=== PATIENT | male | born 1970 | race Caucasian/White ===

== ENCOUNTER 2024-09-01 13:51 | Emergency (ER) | payer OTHER, SELFPAY ==
[2024-09-01 13:58] VITALS: BP 136/75
[2024-09-01 14:30] LABS: % Basophils 0.9 % (0-2); % Eosinophils 8.7 % (0-6); % Immature Granulocytes 0.1 % (0-0.5); % Lymphocytes 30.1 % (20.5-51.1); % Monocytes 9.4 % (1.7-9.3); % Neutrophils 50.8 % (42.2-75.2); Absolute Basophils 0.1 10^3/uL (0-0.2); Absolute Eosinophils 0.6 10^3/uL (0-0.7); Absolute Lymphocytes 2.1 10^3/uL (1.2-3.4); Absolute Monocytes 0.7 10^3/uL (0.1-0.6); Absolute Neutrophils 3.6 10^3/uL (1.4-6.5); Hematocrit 46.3 % (39.0-52.0); Hemoglobin 16.1 g/dL (13.0-18.0); Mean Corp Hgb Conc. 34.8 g/dL (33.0-37.0); Mean Corpuscular Hgb 29.1 pg (27.0-31.0); Mean Corpuscular Volume 83.7 fL (80.0-94.0); Nucleated Red Blood Cells % 0 % (-); Platelet Count 322 10^3/uL (130-400); Red Blood Cell Count 5.53 10^6/uL (4.70-6.10); Red Cell Dist. Width 12.9 % (11.5-14.5); White Blood Cell Count 7.1 10^3/uL (4.8-10.8)
[2024-09-01 14:47] LABS: ALT (SGPT) 18 U/L (0-50); AST (SGOT) 20 U/L (17-59); Albumin 4.5 g/dl (3.5-5.0); Alkaline Phosphatase 66 U/L (38-126); Blood Urea Nitrogen 17 mg/dl (9-20); Calcium 10.1 mg/dl (8.4-10.2); Carbon Dioxide 30 mmol/L (22-30); Chloride 106 mmol/L (98-107); Glucose 93 mg/dl (70-99); Potassium 4.5 mmol/L (3.5-5.1); Sodium 142 mmol/L (135-145); Total Protein 7.5 g/dl (6.3-8.2); eGFR > 60.00
[2024-09-01 14:58] LABS: Troponin I < 0.012 ng/ml
--- NOTE | 2024-09-01 16:16 | ED.GENMED ---
History of Present Illness
General
Chief Complaint: Chest Pain
Source: patient
Exam Limitations: none
Time Seen by Provider: 09/01/24 16:15
Nursing documentation reviewed up to this point in time: agreed with
History of Present Illness
History of Present Illness:
54-year-old male presents emerged from complaining of chest discomfort and gas for the past 4 days. He has been exercising, chest workouts a lot recently. He also has been coughing.
Past History
Past History
ED Past Medical History: None
ED Past Surgical History: Orthopedic (right knee surgery) and Urological (Vasectomy, spermatocelectomy)
Social History
Tobacco: Non-smoker
Alcohol: None
Drug: None
Review of Systems
Review of Systems
Allergies reviewed?: Yes
All Other Systems: Not applicable
Constitutional: Reports no symptoms
EENT: Reports no symptoms
Respiratory: Reports no symptoms
Cardiac: Reports chest pain
ABD/GI: Reports no symptoms
: Reports no symptoms
Musculoskeletal: Reports no symptoms
Skin: Reports no symptoms
Neurological: Reports no symptoms
Endocrine: Reports no symptoms
Hematologic/Lymphatic: Reports no symptoms
Psychiatric: Reports no symptoms
Phy Exam
Physical Exam
Physical Exam:
Physical Exam
General: no apparent distress, not acutely ill
Neck: supple. no meningeal signs. normal posterior pharynx
Heart: s1/s2 regular rate and rhythm, no murmur. equal radial
pulses.
HEENT: Pupils equal round reactive to light, EOMI
Lungs: no acute respiratory distress. clear bilaterally
Abdomen: normal bowel sounds. not tender. no CVAT
Neuro: alert and oriented. no focal neurological deficits cranial nerves II through XII intact
Skin: no rash
Psychiatric: well kept. interactive and cooperative
Extremities: no edema. no calf tenderness. negative homans. good distal pulses
Scores
Heart Score for Chest Pain Patients
STEMI patient?: No
History: Slightly or Non-Suspicious
ECG: Nonspecific Repolarization
Age: >45 - <65 years
Risk Factors: No Risk Factors
Troponin: </= Normal Limit
Heart Score for Chest Pain Patients: 2
Heart Score Risk: 2.5% MACE over next 6 weeks
Course
Orders/Labs/Results
Orders:
Orders
09/01/24 13:52
Electrocardiogram (*1) Urgent
Reason for Study: Chest Pain
Cardiac Monitoring- Treatment ONCE
EKG- Treatment ONCE
IV Insert/Care/Rem.- Treatment PRN
O2 Therapy [RESP] Urgent
Titrate/Wean O2 to maintain O2 sat greater than (%): 90
Special Instructions: Maintain sats >/=90%
Pulse Ox/spot Check [RESP] Urgent
Quantity: 1
Special Instructions: ON ROOM AIR
09/01/24 14:08
Complete Blood Count/With Diff Urgent
Comprehensive Metabolic Panel Urgent
Lipase Urgent
Comment: LIPASE ADDED ON BY FLOOR 4:25PM 09-01-24
Troponin I Urgent
09/01/24 16:25
Add On- LAB Urgent
Tests Added?: lipase
CR Chest - 2 Views Urgent
Comment:
Reason For Exam: cough, chest pain
09/01/24 16:41
D-Dimer Urgent
Abnormal Lab Results
09/01/24
14:08
Absolute Monos (auto) 0.7 H 10^3/uL
(0.1-0.6)
Monocytes % 9.4 H %
(1.7-9.3)
Eosinophils % 8.7 H %
(0-6)
09/01/24 14:08
09/01/24 14:08
Vital Signs
Initial and Last Documented VS:
Initial Vital Signs
Temp Pulse Resp BP Pulse Ox
98.2 F 74 16 136/75 98
09/01/24 13:58 09/01/24 13:58 09/01/24 13:58 09/01/24 13:58 09/01/24 13:58
Last Documented Vital Signs
Temp Pulse Resp BP Pulse Ox
98.5 F 86 16 122/90 98
09/01/24 18:00 09/01/24 18:00 09/01/24 18:00 09/01/24 18:00 09/01/24 18:00
*Pulse Oximetry
Patient hypoxic: no
*EKG
Interpreted by ED Provider?: Yes
EKG Intrepretation Date: 09/01/24
EKG Intrepretation Time: 13:54
Interpretation: normal
Comparison EKG: no comparison EKG present
Heart Rate: 62
Rate: normal
Rhythm: sinus
[place]ak: normal axis
Interval: normal interval
QRS Pattern: normal QRS
Ischemia: non-specific ST changes
*Customer Service Operator Interpretation
Rate: normal
Interpretation: normal
Heart Rate: 65
Rhythm: sinus
*Critical Care Note
Total Time (30-74mins, 75-104mins- exclusive of procedures): Not Applicable
Data Reviewed
Further Testing Considered But Not Given:
ct chest not indicated
ED Attending Note
-
Portions of this chart may have been created with voice recognition software.� Occasional wrong word or��sound alike� substitutions may have occurred due to the inherent limitations of voice recognition software.
Discharge Plan
Departure
Patient Disposition: Home (Routine Discharge)
Date of Disposition: 09/01/24
Time of Disposition: 18:30
Patient with high blood pressure during this ER visit?: Yes
Condition: Good
Discharge Problem:
Chest pain
Instructions: Chest Pain PCP Follow Up, BLOOD PRESSURE
Referrals:
Yun Hastings CRNP [Family Provider, Family Practice] - Call in 1-3 days for appt
Interventions
Interventions:
*Risk Screen - Suicide Last Done: 09/01/24 13:58
*General Assessment Last Done: 09/01/24 16:20
*Neglect/Abuse Screening Last Done: 09/01/24 13:58
*ED- Fall Risk Assessment Last Done: 09/01/24 16:20
*ED COVID-19 Vaccine History Last Done: 09/01/24 16:20
*Nursing Disposition Last Done: 09/01/24 18:34
ED- Cardiac Assessment Last Done: 09/01/24 18:00
Discharge Date and Time
Discharge Date/Time: 09/01/24 18:35
Print Language: LITHUANIAN
[2024-09-01 16:19] VITALS: BMI 29.9
[2024-09-01 16:59] LABS: D-Dimer < 0.27 ug/mlFEU (0.00-0.50)
[2024-09-01 17:00] LABS: Lipase 62 U/L (23-300)
[2024-09-01 18:00] VITALS: BP 122/90
== END 2024-09-01 18:35 | disposition home or self-care (01) ==
LOC: EMR 13:51
PROVIDERS: Emergency Medicine; EMERGENCY PHYSICIAN Emergency Medicine; FAMILY PHYSICIAN Nurse Practitioner
DX: R07.89 Other chest pain (principal)
CPT/HCPCS: 99283; 71046; 80053; 83690; 84484; 85025; 85379; 93005